=== PATIENT | male | born 1980 | race Caucasian/White ===

== ENCOUNTER 2017-04-30 23:11 | Emergency (ER) | payer SELFPAY | END 2017-05-01 01:23 | disposition home or self-care (01) | LOC: FER 23:11 | DX: S80.861A Insect bite (nonvenomous), right lower leg, initial encounter (principal); K02.9 Dental caries, unspecified; W57.XXXA Bitten or stung by nonvenomous insect and other nonvenomous arthropods, initial encounter | CPT/HCPCS: 99283 ==